=== PATIENT | female | born 1945 ===

== ENCOUNTER 2018-01-17 04:19 | Emergency (ER) | payer OTHER ==
[~2018-01-17] VITALS: Ht 160 cm; Wt 76.7 kg
[2018-01-17 04:21] VITALS: Ht 160 cm; Wt 76.7 kg
[2018-01-17] MEDS ORDERED: LORAZEPAM 2 MG/ML 1 ML VIAL IV STA (04:46)
[2018-01-17 04:47] VITALS: O2SAT 96
[2018-01-17 04:58] LABS: ISTAT CREATININE 0.8 mg/dl (0.6-1.3); ISTAT IONIZED CALCIUM 1.16 mmol/l (1.12-1.32); ISTAT POTASSIUM 3.6 mEq/L (3.3-5.0)
[2018-01-17 04:58] LABS: BASO % 0.5 %; BASO ABS # 0.03 K/uL (0-0.2); EOS % 12.5 %; EOS ABS # 0.72 K/uL (0-0.5); HEMATOCRIT 40.7 % (37-47); HEMOGLOBIN 13.5 g/dL (12.0-16.0); LYMPH % 35.1 %; LYMPH ABS # 2.03 K/uL (1.2-3.4); MEAN CELL VOLUME 93.1 fL (80-100); MEAN CORPUSCULAR HEMOGLOBIN 30.9 pg (25-34); MEAN CORPUSCULAR HGB CONC 33.2 g/dl (32-36); MEAN PLATELET VOLUME 9.3 fL (7.4-10.4); MONO % 5.9 %; MONO ABS # 0.34 K/uL (0.11-0.59); NEUT ABS # 2.66 K/uL (1.4-6.5); PLATELET COUNT 235 K/uL (130-400); RED CELL DISTRIBUTION WIDTH CV 13.3 % (11.5-14.5); RED CELL DISTRIBUTION WIDTH SD 45.7 fL (36.4-46.3); WHITE BLOOD COUNT 5.78 K/uL (4.8-10.8)
[2018-01-17] MEDS ORDERED: SERT50TA PO (05:08)
[2018-01-17] MEDS ORDERED: METO50TA8 PO (05:08)
[2018-01-17] MEDS ORDERED: LORA-741 PO (05:08)
[2018-01-17] MEDS ORDERED: MULT-1027 PO (05:08)
[2018-01-17] MEDS ORDERED: ASPI81TA28 PO (05:08)
[2018-01-17] MEDS ORDERED: CZR50 PO (05:08)
[2018-01-17] MEDS ORDERED: LEVO88TA3 PO (05:08)
--- NOTE | 2018-01-17 05:23 | EMERGENCY ROOM VISIT NOTE ---
ED Visit Note First contact with patient: 04:36 I have seen and examined this patient with Maria Victoria Shin and agree with the treatment plan. Current/Historical Medications Scheduled Aspirin (Aspirin Ec), 81 MG PO DAILY Levothyroxine Sodium (Levothyroxine Sodium), 1 TAB PO DAILY Losartan Potassium (Losartan Potassium), 1 TAB PO DAILY Metoprolol Succ (Toprol Xl) (Toprol-Xl), 1 TAB PO DAILY Multiple Vitamin (Multi Vitamin), 1 TAB PO DAILY Sertraline (Zoloft), 1 TAB PO DAILY Scheduled PRN Lorazepam (Ativan), 1 TAB PO DIRECTED PRN for Anxiety/Agitation Allergies Coded Allergies: POLLEN (Verified Allergy, Intermediate, ITCHY, WATERY EYES, SNEEZING, CONGESTION, 01/17/18) Vital Signs Date Time Temp Pulse Resp B/P (MAP) Pulse Ox O2 Delivery O2 Flow Rate FiO2 01/17/18 04:59 77 19 94 01/17/18 04:57 170/131 01/17/18 04:54 78 10 95 01/17/18 04:49 78 15 96 01/17/18 04:47 96 Room Air 01/17/18 04:47 96 Room Air 01/17/18 04:44 83 19 97 01/17/18 04:39 79 17 97 01/17/18 04:35 81 01/17/18 04:34 82 18 97 01/17/18 04:21 36.7 96 24 163/106 98 Room Air Laboratory Results 01/17/18 04:35 Red Blood Count 4.37, Mean Corpuscular Volume 93.1, Mean Corpuscular Hemoglobin 30.9, Mean Corpuscular Hemoglobin Concent 33.2, Mean Platelet Volume 9.3, Neutrophils (%) (Auto) 46.0, Lymphocytes (%) (Auto) 35.1, Monocytes (%) (Auto) 5.9, Eosinophils (%) (Auto) 12.5, Basophils (%) (Auto) 0.5, Neutrophils # (Auto ) 2.66, Lymphocytes # (Auto) 2.03, Monocytes # (Auto) 0.34, Eosinophils # (Auto ) 0.72, Basophils # (Auto) 0.03 Test 01/17/18 04:35 01/17/18 04:42 01/17/18 04:44 White Blood Count 5.78 K/uL (4.8-10.8) Red Blood Count 4.37 M/uL (4.2-5.4) Hemoglobin 13.5 g/dL (12.0-16.0) Hematocrit 40.7 % (37-47) Mean Corpuscular Volume 93.1 fL (80-100) Mean Corpuscular Hemoglobin 30.9 pg (25-34) Mean Corpuscular Hemoglobin Concent 33.2 g/dl (32-36) Platelet Count 235 K/uL (130-400) Mean Platelet Volume 9.3 fL (7.4-10.4) Neutrophils (%) (Auto) 46.0 % Lymphocytes (%) (Auto) 35.1 % Monocytes (%) (Auto) 5.9 % Eosinophils (%) (Auto) 12.5 % Basophils (%) (Auto) 0.5 % Neutrophils # (Auto) 2.66 K/uL (1.4-6.5) Lymphocytes # (Auto) 2.03 K/uL (1.2-3.4) Monocytes # (Auto) 0.34 K/uL (0.11-0.59) Eosinophils # (Auto) 0.72 K/uL (0-0.5) Basophils # (Auto) 0.03 K/uL (0-0.2) RDW Standard Deviation 45.7 fL (36.4-46.3) RDW Coefficient of Variation 13.3 % (11.5-14.5) Immature Granulocyte % (Auto) 0.0 % Immature Granulocyte # (Auto) 0.00 K/uL (0.00-0.02) Bedside D-Dimer > 450 ng/mlFEU (0-450) Bedside Troponin I < 0.030 ng/ml (0-0.045) Bedside Hemoglobin 13.3 g/dl (12.0-16.0) Bedside Hematocrit 39 % (37-47) Bedside Sodium 145 mEq/L (135-144) Bedside Potassium 3.6 mEq/L (3.3-5.0) Bedside Chloride 108 mEq/L (101-112) Bedside Total CO2 24 mEq/l (24-31) Anion Gap 17.0 mmol/L (16-25) Bedside Blood Urea Nitrogen 19 mg/dl (7-18) Bedside Creatinine 0.8 mg/dl (0.6-1.3) Bedside Glucose (other) 113 mg/dl (70-99) Bedside Ionized Calcium (Rusty) 1.16 mmol/l (1.12-1.32) Medications Administered Medications (Trade) Dose Ordered Sig/Gurmeet Route Start Time Stop Time Status Last Admin Dose Admin Lorazepam (Ativan Inj) 0.5 mg NOW STAT IV 01/17/18 04:46 01/17/18 04:47 DC 01/17/18 04:52 0.5 MG Departure Information Referrals No Doctor, Assigned (PCP) Patient Instructions My [facility]
[2018-01-17 05:28] LABS: ALBUMIN 3.4 gm/dl (3.4-5.0); ALKALINE PHOSPHATASE 70 U/L (45-117); ALT/SGPT 22 U/L (12-78); AST/SGOT 18 U/L (15-37); BLOOD UREA NITROGEN 17 mg/dl (7-18); CALCIUM 8.4 mg/dl (8.5-10.1); CARBON DIOXIDE 25 mmol/L (21-32); CREATININE 0.93 mg/dl (0.60-1.20); GLUCOSE 109 mg/dl (70-99); POTASSIUM 3.6 mmol/L (3.5-5.1); SODIUM 145 mmol/L (136-145); TOTAL PROTEIN 7.4 gm/dl (6.4-8.2)
[2018-01-17] MEDS ORDERED: OPTIRAY 320 IV PRN (05:45)
[2018-01-17 06:51] VITALS: BP 134/85; TEMP 36.7
[2018-01-17 06:52] VITALS: PULSE 74; O2SAT 94
--- NOTE | 2018-01-17 06:54 | EMERGENCY ROOM VISIT NOTE ---
History First contact with patient: 04:36 Chief Complaint: SHORTNESS OF BREATH Stated Complaint: SOB Nursing Triage Summary: see triage note History of Present Illness The patient is a 72 year old female who presents to the Emergency Room with complaints of feeling anxious with mild shortness of breath for the past several hours. Patient is here for a convention. No history of CHF. No history of PE. Patient denies chest pain, abdominal pain, leg pain or swelling , fever, chills, cold symptoms, lightheadedness or dizziness. Patient does suffer from anxiety. No alcohol, tobacco or drug use. No prior history of blood clots. She is on a baby aspirin. No recent travel. Review of Systems An 10 system review of systems was completed with positives and pertinent negatives listed in the HPI. Past Medical/Surgical History Hypertension, anxiety, hyperlipidemia, coronary disease, defibrillator, pacemaker Social History Smoking Status: Never Smoker Smokeless Tobacco Use: No Alcohol Use: none Drug Use: none Marital Status: Housing Status: lives with family Current/Historical Medications Scheduled Aspirin (Aspirin Ec), 81 MG PO DAILY Levothyroxine Sodium (Levothyroxine Sodium), 1 TAB PO DAILY Losartan Potassium (Losartan Potassium), 1 TAB PO DAILY Metoprolol Succ (Toprol Xl) (Toprol-Xl), 1 TAB PO DAILY Multiple Vitamin (Multi Vitamin), 1 TAB PO DAILY Sertraline (Zoloft), 1 TAB PO DAILY Scheduled PRN Lorazepam (Ativan), 1 TAB PO DIRECTED PRN for Anxiety/Agitation Physical Exam Vital Signs Date Time Temp Pulse Resp B/P (MAP) Pulse Ox O2 Delivery O2 Flow Rate FiO2 01/17/18 06:42 72 17 95 Room Air 01/17/18 06:31 134/85 01/17/18 06:12 74 14 96 01/17/18 06:01 119/70 01/17/18 05:42 79 18 96 01/17/18 05:37 74 18 135/75 95 Room Air 01/17/18 05:37 78 18 135/75 95 Room Air 01/17/18 05:04 77 19 93 01/17/18 04:59 77 19 94 01/17/18 04:57 170/131 01/17/18 04:54 78 10 95 01/17/18 04:49 78 15 96 01/17/18 04:47 96 Room Air 01/17/18 04:47 96 Room Air 01/17/18 04:44 83 19 97 01/17/18 04:39 79 17 97 01/17/18 04:35 81 01/17/18 04:34 82 18 97 01/17/18 04:21 36.7 96 24 163/106 98 Room Air Physical Exam VITALS: Vitals are noted on the nurse's note and reviewed by myself. Vital signs stable. GENERAL: Pleasant female anxious appearing, in no acute distress, nondiaphoretic , well-developed well-nourished. SKIN: The skin was without rashes, erythema, edema, or bruising. There is no tenting of the skin. Capillary reflex less than 2 seconds. HEAD: Normocephalic atraumatic. EARS: External auditory canals clear, tympanic membranes pearly barrera without erythema or effusion bilaterally. EYES: Pupils equal round and reactive to light and accommodation. Conjunctivae without injection, sclerae without icterus. Extraocular movements intact. NOSE: Patent, turbinates without inflammation or discharge. MOUTH: Mucous membranes moist. Pharynx without erythema or exudate. Uvula midline. Airway patent. Tongue does not deviate. NECK: Supple without nuchal rigidity. No lymphadenopathy. No thyromegaly. Cervical spine is nontender. No JVD. HEART: Regular rate and rhythm LUNGS: Clear to auscultation bilaterally without wheezes, rales or rhonchi. No retractions or accessory muscle use. ABDOMEN: Positive bowel sounds x 4. Normal tympanic percussion. Soft, nontender, without masses or organomegaly. Clifton sign negative. No guarding or rebound tenderness. No CVA tenderness MUSCULOSKELETAL: No muscle atrophy, erythema, noted. NEURO: Patient was alert and oriented to person place and time. Normal sensation to light and sharp touch. No focal neurological deficits. Medical Decision & Procedures Laboratory Results 01/17/18 04:35 Red Blood Count 4.37, Mean Corpuscular Volume 93.1, Mean Corpuscular Hemoglobin 30.9, Mean Corpuscular Hemoglobin Concent 33.2, Mean Platelet Volume 9.3, Neutrophils (%) (Auto) 46.0, Lymphocytes (%) (Auto) 35.1, Monocytes (%) (Auto) 5.9, Eosinophils (%) (Auto) 12.5, Basophils (%) (Auto) 0.5, Neutrophils # (Auto ) 2.66, Lymphocytes # (Auto) 2.03, Monocytes # (Auto) 0.34, Eosinophils # (Auto ) 0.72, Basophils # (Auto) 0.03 01/17/18 04:35 Test 01/17/18 04:35 01/17/18 04:42 01/17/18 04:44 01/17/18 06:14 White Blood Count 5.78 K/uL (4.8-10.8) Red Blood Count 4.37 M/uL (4.2-5.4) Hemoglobin 13.5 g/dL (12.0-16.0) Hematocrit 40.7 % (37-47) Mean Corpuscular Volume 93.1 fL (80-100) Mean Corpuscular Hemoglobin 30.9 pg (25-34) Mean Corpuscular Hemoglobin Concent 33.2 g/dl (32-36) Platelet Count 235 K/uL (130-400) Mean Platelet Volume 9.3 fL (7.4-10.4) Neutrophils (%) (Auto) 46.0 % Lymphocytes (%) (Auto) 35.1 % Monocytes (%) (Auto) 5.9 % Eosinophils (%) (Auto) 12.5 % Basophils (%) (Auto) 0.5 % Neutrophils # (Auto) 2.66 K/uL (1.4-6.5) Lymphocytes # (Auto) 2.03 K/uL (1.2-3.4) Monocytes # (Auto) 0.34 K/uL (0.11-0.59) Eosinophils # (Auto) 0.72 K/uL (0-0.5) Basophils # (Auto) 0.03 K/uL (0-0.2) RDW Standard Deviation 45.7 fL (36.4-46.3) RDW Coefficient of Variation 13.3 % (11.5-14.5) Immature Granulocyte % (Auto) 0.0 % Immature Granulocyte # (Auto) 0.00 K/uL (0.00-0.02) Est Creatinine Clear Calc Drug Dose 52.8 ml/min Estimated GFR () 70.7 Estimated GFR (Non- 61.0 BUN/Creatinine Ratio 18.7 (10-20) Calcium Level 8.4 mg/dl (8.5-10.1) Magnesium Level 2.0 mg/dl (1.8-2.4) Total Bilirubin 0.3 mg/dl (0.2-1) Direct Bilirubin < 0.1 mg/dl (0-0.2) Aspartate Amino Transf (AST/SGOT) 18 U/L (15-37) Alanine Aminotransferase (ALT/SGPT) 22 U/L (12-78) Alkaline Phosphatase 70 U/L (45-117) Pro-B-Type Natriuretic Peptide 1541 pg/ml (0-900) Total Protein 7.4 gm/dl (6.4-8.2) Albumin 3.4 gm/dl (3.4-5.0) Thyroid Stimulating Hormone (TSH) 5.690 uIu/ml (0.300-4.500) Bedside D-Dimer > 450 ng/mlFEU (0-450) Bedside Hemoglobin 13.3 g/dl (12.0-16.0) Bedside Hematocrit 39 % (37-47) Bedside Sodium 145 mEq/L (135-144) Bedside Potassium 3.6 mEq/L (3.3-5.0) Bedside Chloride 108 mEq/L (101-112) Bedside Total CO2 24 mEq/l (24-31) Anion Gap 17.0 mmol/L (16-25) Bedside Blood Urea Nitrogen 19 mg/dl (7-18) Bedside Creatinine 0.8 mg/dl (0.6-1.3) Bedside Glucose (other) 113 mg/dl (70-99) Bedside Ionized Calcium (Rusty) 1.16 mmol/l (1.12-1.32) Bedside Troponin I < 0.030 ng/ml (0-0.045) Medications Administered Medications (Trade) Dose Ordered Sig/Gurmeet Route Start Time Stop Time Status Last Admin Dose Admin Lorazepam (Ativan Inj) 0.5 mg NOW STAT IV 01/17/18 04:46 01/17/18 04:47 DC 01/17/18 04:52 0.5 MG ED Course Prior records/ancillary studies reviewed. Triage Nursing notes reviewed. Additional history obtained from the family. The patient's history was concerning for respiratory difficulties. Differential diagnosis: Etiologies such as infections, reactive airway disease, pneumonia, pneumothorax , COPD, CHF, cardiac ischemia, pulmonary embolism, musculoskeletal, gastrointestinal, as well as others were entertained. Physical examination: As above. ER treatment provided: Ativan On reassessment the patient felt better. Diagnostic interpretation by me: The electrocardiogram was negative for acute ischemic or pathologic change. Paced ventricular rhythm with no scar Bosa criteria and is regular with no acute ST-T wave changes and his rate of 84. EKG compared to prior EKG from December 2015 with no acute changes noted. Impression atrial sensed ventricular paced rhythm interpreted by myself. The labs revealed negative troponin 2. Elevated d-dimer. Patient was sent for CTA Imaging studies: Chest x-ray with no acute consolidation, pneumothorax free of my interpretation CTA CHEST: Normal caliber thoracic aorta. Coronary artery calcifications. No pericardial effusion. Pacemaker device. Scarring and atelectasis in lower lungs. No focal consolidative process or pleural effusions. No lymphadenopathy. No definite PE. Small hiatal hernia. 2 solid lesions in the liver, best seen on images 34 and 11 of series 4. Differential considerations include benign and malignant entities. Comparison with prior imaging if available is recommended. Otherwise, liver protocol CT may further evaluate. Radiologist: Ruchi Acuña M.D. HEART SCORE: Hx: high/mod/low suspicion: 0 ECG: ST depression/nonspecific changes/normal: 0 Age: Greater than 65/45-64/less than 45: 2 Risk factors: (Hypertension, hyperlipidemia, diabetes, coronary disease, tobacco use, cocaine use): 3 Troponin: Greater than 2 times normal limits/1-2 times normal limits/normal: 0 Total: 5 The pulmonary embolism rule out criteria (PERC rule) Age <50 years yes Heart rate <100 bpm 0 Oxyhemoglobin saturation =95% 0 No hemoptysis 0 No estrogen use 0 No prior DVT or PE 0 No unilateral leg swelling 0 No surgery/trauma requiring hospitalization within the prior four weeks 0 (0 low risk) Total: 1 yes Wells Score Symptoms of DVT 3pt: 0 Alternative diagnoses better explains illness 3pts: 0 Tachycardia greater than 100 1.5 pts 0 Immobilization greater than 3 days or surgery in the previous 4 weeks 1.5 pts: 0 Prior history of DVT or PE 1.5 pts: 0 Presence of hemoptysis 1pt: 0 Presence of malignancy 1pt: 0 (Score greater than 6 is high probability, score 2-6 moderate probability, score less than 2 low probability) Total: 0 This appears to be consistent with dyspnea most likely related to anxiety. Patient felt much better after the Ativan. She had no PE on CTA. 2 negative troponins. Unchanged EKG. Patient states she knows about the liver nodules and will follow-up with family care for this. Patient was advised to rest, stay well-hydrated and follow-up family care in a few days here in the ER sooner for chest pain, difficulty breathing, worsening signs or symptoms or as needed. Patient had no pneumonia on imaging. No signs of heart failure or PE. By the evaluation outlined above emergent etiologies such as CHF, cardiac ischemia, pulmonary embolism, reactive airway disease, pneumonia, pneumothorax, musculoskeletal, serious bacterial infections, as well as others were deemed relatively unlikely. The pt informed about the findings as listed above. All questions were answered and pleased with the treatment. Return instructions were outlined and the patient was discharged in stable condition. Referral: The patient was referred back to their primary care physician for follow-up in 2 to 3 days for a recheck of the current condition. Case reviewed with my attending The chart was completed utilizing [employer] Speech voice recognition software. Grammatical errors, random word insertions, pronoun errors, and incomplete sentences are an occassional consequence of this system due to software limitations, ambient noise, and hardware issues. Any formal questions or concerns about the content, text, or information contained within the body of this dictation should be directly addressed to the physician inventory assistant for clarification. Medical Decision As above Medication Reconcilliation Current Medication List: was personally reviewed by me Blood Pressure Screening Patient's blood pressure: Normal blood pressure Impression Primary Impression: Anxiety Additional Impression: Dyspnea Departure Information Dispostion Home / Self-Care Condition GOOD Forms HOME CARE DOCUMENTATION FORM, IMPORTANT VISIT INFORMATION Patient Instructions My [facility] [employer] Additional Instructions DO NOT drive, drink alcohol, operate machinery, or perform dangerous activities today. You were given medications in the ER that can affect your ability to safely function or operate a vehicle. He had liver abnormalities on your CT scan tonight. Follow-up with family care for this. Rest and drink plenty of fluids as tolerated. Continue current medications. Return to the ER immediately for abdominal pain, vomiting, fevers, chest pains , difficulty breathing, worsening of your condition, or as needed. Follow up with your primary physician in 2-3 days for a recheck of your current condition. Problem Qualifiers
--- NOTE | 2018-01-17 07:10 | DIAGNOSTIC IMAGING REPORT ---
CHEST ONE VIEW PORTABLE HISTORY: Atypical CHEST PAIN COMPARISON: None. FINDINGS: The heart is normal in size. No pleural effusions. No pneumothorax. Left-sided pacemaker/defibrillator. Mild interstitial thickening at the lung bases is likely chronic. No focal lung consolidations to suggest pneumonia. IMPRESSION: No acute process. Electronically signed by: Gee Nicole M.D. 01/17/2018 7:09 AM Dictated Date/Time: 01/17/2018 7:08 AM
--- NOTE | 2018-01-17 08:45 | DIAGNOSTIC IMAGING REPORT ---
CHEST CTA for PULMONARY ARTERIES CT DOSE: 281.00 mGy.cm HISTORY: Atypical chest pain. TECHNIQUE: Multiaxial CT images of the chest were performed following the intravenous administration of contrast to evaluate the pulmonary arteries. Maximal intensity projection images were also obtained. A dose lowering technique was utilized adhering to the principles of ALARA. COMPARISON STUDY: None. FINDINGS: The central airways are patent. No pleural effusions. No pneumothorax. Mild emphysema. A few peripheral linear and patchy groundglass densities at the lung bases. This may be chronic or due to mild dependent change. Otherwise, no focal lung consolidations to suggest pneumonia. No evidence for pulmonary edema. A 3 mm nodule within the lingula on image 107. This is of doubtful clinical significance given its small size. No acute fractures within the visualized osseous structures. Left-sided pacemaker is noted. There are 2 hypodense lesions seen within the liver. The left hepatic lobe lesion measures 3 cm and the right hepatic lobe lesion measures 2.5 cm. These are incompletely characterize on this study but do not appear to represent cysts. Postoperative changes seen within the right breast. A few mediastinal lymph nodes do not meet CT criteria for pathologic involvement. No hilar lymphadenopathy. The heart is top normal in size. The ascending thoracic aorta measures up to 3.5 cm in diameter. This is considered to be within the range of normal limits. No evidence for an aortic dissection. No filling defects within the pulmonary arteries to suggest pulmonary embolus. IMPRESSION: 1. No evidence for pulmonary embolus. 2. A few peripheral linear and patchy groundglass densities at the lung bases. This may be chronic or due to mild dependent change. Otherwise, no focal lung consolidations to suggest pneumonia. 3. There are 2 indeterminate hypodense lesions within the liver. Follow-up nonemergent liver MRI can be used for further evaluation. Electronically signed by: Gee Nicole M.D. 01/17/2018 8:44 AM Dictated Date/Time: 01/17/2018 8:32 AM
== END 2018-01-17 06:54 | disposition home or self-care (01) ==
LOC: C.EDB 04:21
DX: F41.9 Anxiety disorder, unspecified (principal); R06.02 Shortness of breath; I10 Essential (primary) hypertension; Z95.0 Presence of cardiac pacemaker; E78.5 Hyperlipidemia, unspecified; Z79.82 Long term (current) use of aspirin; Z79.899 Other long term (current) drug therapy